=== PATIENT | male | born 1995 | race Caucasian/White ===

== ENCOUNTER → 2016-11-23 03:18 | Emergency (ER) | payer SELFPAY ==
[~2016-11-23 03:18] MED LIST: Haloperidol TAB* 2 MG PO ONE; Lidocaine 2% JELLY* 6 ML JELLY TOPICAL ONE; Lidocaine/Epineph/Tetraca SOL* (LET solution) 4 ML BTL TOPICAL ONE; diPHENhydraMINE PO* 50 MG PO ONE
[2016-11-23 03:58] LABS: Hematocrit 48 % (42-52); Hemoglobin 16.5 g/dl (14.0-18.0); Mean Corpuscular HGB Conc 34 g/dl (31-36); Mean Corpuscular Hemoglobin 29 pg (27-31); Mean Corpuscular Volume 85 fL (80-94); Mean Platelet Volume 8 um3 (7.4-10.4); Red Blood Count 5.63 10^6/ul (4.0-5.4); Red Cell Distribution Width 13 % (10.5-15); White Blood Count 8.4 10^3/ul (3.5-10.8)
[2016-11-23 04:09] LABS: ALT 26 U/L (7-52); AST 46 U/L (13-39); Albumin 4.9 g/dL (3.2-5.2); Alkaline Phosphatase 64 U/L (34-104); Anion Gap 9 mmol/L (2-11); BUN/Creatinine Ratio 14.1 (8-20); Blood Urea Nitrogen 14 mg/dL (6-24); CO2 Carbon Dioxide 26 mmol/L (22-32); Calcium 9.1 mg/dL (8.6-10.3); Chloride 105 mmol/L (101-111); EGFR African American 123.9 (>60); EGFR Non-African American 96.4 (>60); Globulin 2.7 g/dL (2-4); Glucose 93 mg/dL (70-100); Potassium 3.9 mmol/L (3.5-5.0); Sodium 140 mmol/L (133-145); Total Protein 7.6 g/dL (6.4-8.9)
[2016-11-23 04:15] LABS: Benzodiazepine Urine Screen None Detected (None Detect)
[2016-11-23 04:20] LABS: Urine Bacteria Absent (Absent); Urine Bilirubin Negative (Negative); Urine Glucose Negative (Negative); Urine Nitrite Negative (Negative)
[2016-11-23 04:34] LABS: Acetaminophen < 15 mcg/mL; Alcohol 189 mg/dL (<10); Salicylate < 2.50 mg/dL (<30)
[2016-11-23 04:45] LABS: TSH (Thyroid Stimulating Horm) 1.41 mcIU/mL (0.34-5.60)
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
--- NOTE | 2016-11-23 07:55 | RAD ---
INDICATION: Left hand laceration. TECHNIQUE: 2 views of the left hand were obtained. FINDINGS: There is soft tissue swelling and a soft tissue defect present along the medial aspect of the hand. There is increased separation of the third and fourth fingers. Recommend clinical correlation. No fracture or radiopaque foreign body is seen. IMPRESSION: 1. SOFT TISSUE INJURY, NO FRACTURE OR RADIOPAQUE FOREIGN BODY IS SEEN. 2. INCREASED SEPARATION OF THE THIRD AND FOURTH FINGERS, RECOMMEND CLINICAL CORRELATION.
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
== END | disposition home or self-care (01) ==
LOC: EDBD 03:18 → ED 03:18
DX: S61.412A Laceration without foreign body of left hand, initial encounter (principal); W22.8XXA Striking against or struck by other objects, initial encounter; Y93.9 Activity, unspecified; Y92.9 Unspecified place or not applicable
CPT/HCPCS: 12001; 36415; 80053; 80307; 80320; 80329; 81003; 81015; 84443; 85025; 99282; A9270-GY; G0480